=== PATIENT | female | born 1975 | race Caucasian/White ===

== ENCOUNTER 2021-07-23 08:08 | Day surgery (SDC) | payer OTHER ==
[2021-07-23 08:04] LABS: Urine Appearance CLEAR (Clear); Urine Bilirubin NEGATIVE (Negative); Urine Blood NEGATIVE (Negative); Urine Color YELLOW (Yellow); Urine Glucose NEGATIVE (Negative); Urine Protein NEGATIVE (Negative); Urine Specific Gravity 1.025 (1.005-1.030); Urine Urobilinogen 0.2 mg/dL (0.2-1.0); Urine pH 6.5 (5.0-7.0)
[2021-07-23 08:09] LABS: Absolute Lymphocytes (CBC) 1.9 K/uL (0.7-4.9); Basophils % 0.5 % (0-1.3); Hematocrit 39.5 % (36.0-45.0); Lymphocytes % 25.4 % (15.3-44.8); RBC Red Blood Cell Count 4.25 M/uL (3.86-4.86); Urine Microscopic Reflex NO UMIC
[2021-07-23 08:12] LABS: Specific Gravity 1.025 (1.005-1.030)
--- NOTE | 2021-07-23 08:20 | RAD REPORT ---
EXAM DESCRIPTION: RAD - Chest Pa And Lat (2 Views) - 07/23/2021 8:09 am CLINICAL HISTORY: Pre Op pending breast lift COMPARISON: None TECHNIQUE: Frontal and lateral views of the chest were obtained. FINDINGS: The lungs are clear. Heart size is normal and central vasculature is within normal limit s. No pleural effusion or pneumothorax seen. No acute bony finding noted. No aortic abnormality. IMPRESSION: No acute cardiopulmonary process.
[2021-07-23] MEDS ORDERED: Ringers Lactate 1,000 ML IV ONE ×3 (08:35→08:37)
[2021-07-23] MEDS ORDERED: CEFAZOLIN/NS 1gm 1 GM/50 ML BAG ONE (08:35)
[2021-07-23] MEDS ORDERED: CEFAZOLIN SODIUM 1 GM/VIAL ONE ×2 (08:36→09:34)
[2021-07-23] MEDS ORDERED: NS 0.9% VIAL 30 ML ONE (08:36)
[2021-07-23] MEDS ORDERED: SCOPOLAMINE HYDROBROMIDE PATCH TD ONE (08:36)
[2021-07-23] MEDS ORDERED: GENTAMICIN 100 MG/100 ML BAG 100 ML IV ONE (08:37)
[2021-07-23] MEDS ORDERED: Mastisol Adhesive Liq ONE ×2 (08:37→14:00)
[2021-07-23] MEDS ORDERED: LIDOCAINE 1% W/EPI 1:100,000 MDV 20 ML VIAL ONE (08:37)
[2021-07-23] MEDS ORDERED: VECURONIUM 10 MG/VIAL IV ONE ×2 (08:39→12:11)
[2021-07-23] MEDS ORDERED: LANO/MINERAL OIL/PETRO 3.5 GM ONE (08:39)
[2021-07-23] MEDS ORDERED: FENTANYL CITR 250 MCG/5 ML ONE ×2 (08:45→12:10)
[2021-07-23] MEDS ORDERED: LIDOCAINE 1% MPF 5 ML VIAL ONE (08:45)
[2021-07-23] MEDS ORDERED: NS 0.9% VIAL 10 ML ONE ×3 (08:45→12:11)
[2021-07-23] MEDS ORDERED: dexAMETHasone 10 MG/ML VIAL ONE (08:45)
[2021-07-23] MEDS ORDERED: propofoL 200 MG/20 ML VIAL IV ONE (08:45)
[2021-07-23] MEDS ORDERED: MIDAZOLAM HCL 2 MG/2 ML INJ ONE ×2 (08:45→09:23)
[2021-07-23] MEDS ORDERED: ONDANSETRON 4 MG/2 ML VIAL ONE ×2 (08:46→13:16)
[2021-07-23] MEDS ORDERED: GENTAMICIN 80 MG/100 ML BAG 80 MG/100 ML BAG IV ONE (09:38)
[2021-07-23] MEDS ORDERED: KETOROLAC 30 MG/ML INJ ONE (13:16)
[2021-07-23] MEDS ORDERED: GLYCOPYRROLATE 0.2 MG/ML SYR ONE (13:16)
[2021-07-23] MEDS ORDERED: NEOSTIGMINE 1 MG/ML -5 ML ONE (13:17)
[2021-07-23] MEDS ORDERED: HYDROMORPHONE HCL 1 MG/ML INJ ONE (15:03)
[2021-07-23 15:10] VITALS: O2SAT 98
[2021-07-23] MEDS ORDERED: TRAMADOL HCL 50 MG TAB ONE (15:29)
[2021-07-23] MEDS ORDERED: TRAMADOL HCL 50 MG TAB PO ONE (15:40)
[2021-07-23 16:38] VITALS: BP 111/56
[2021-07-23 16:41] VITALS: TEMP 97.9
--- NOTE | 2021-07-23 19:06 | OP ---
Surgeon: Artis Sebastian MD Clinical Physician Assistant: Edward. Preoperative Diagnosis: Breast enlargement, descent. Postoperative Diagnosis: Breast enlargement, descent. Procedure Performed: Breast reduction. Anesthesia: General. Operative Note: After satisfactory induction of general anesthesia, the chest was prepped with DuraP rep and dry sterile drapes applied in the usual manner. A 5 cm template was used to outline the righ t and left areolas and transverse curvilinear incisions were made. Remainder of the skin was deepith elized with a dermabrader or tenotomy scissors. Flaps were elevated approximately 1.6 cm thickness t oward the sternum, clavicle, and anterior iliac spine bilaterally. The right side was approached fir st. The inferior incision was made. Excess breast tissue was resected laterally and conization was performed with 2-0 PDS suture. Straps were elevated at 12 o'clock, 1:30 and 3 o'clock position and t hen the straps were woven in and out of pec muscle back to the base of the cone, pectoral muscle, neha k to base of cone, tied to themselves with 2-0 PDS suture. This was done for 12 o'clock and 1:30 str aps. 3 o'clock strap was sewn over the sternum at 3 o'clock position with 2-0 Ethibond. Wounds were temporary stapled shut. Left side was done in a mirror-image manner. We then returned to the right side. 2-0 Monocryl was used to tack the inferior flap at the 6 o'clock position to the periosteum o f the rib underlying and then the 10 SAMI was brought out of the axilla. Wound was irrigated with anti biotic solution and then the wound was closed with 3-0 Vicryl for subcu and 3-0 PDS running subcuticu lar and tied from medial to lateral, lateral to medial, tied in the vertical meridian of breast. Lef t side was done in identical manner. The patient was sat up. Site for new nipple-areolar complex wa s marked out and tissue was cored out with scalpel and electrocautery. Then closed with interrupted 4-0 PDS followed with 4-0 PDS running subcuticular. Dressings consisted of tincture of benzoin, Ster i-Strips, followed by fluffs, and Maxx wrap. The patient tolerated procedure well. Amount removed wa s approximately 250 from each side. GH/MODL Voice ID: [id number] Report ID: [id number]
== END 2021-07-23 16:33 | disposition home or self-care (01) ==
LOC: OR 08:08
PROVIDERS: ATTEND Specialist
PROC: 0HSV0ZZ Reposition Bilateral Breast, Open Approach (ICD-10-PCS; principal; 2021-07-23 09:00)
DX: N64.81 Ptosis of breast (principal)
CPT/HCPCS: 93005; 85025; 36415; 81025; 88305; 81003; 71046; 19316; J2704; J2250; J3010 ×2; J1100; J1170; J2710; J0690 ×3; J1580 ×2; J7120 ×3; J2405 ×2